=== PATIENT | female | born 1960 | race Caucasian/White ===

== ENCOUNTER 2024-09-28 12:38 | Emergency (ER) | payer OTHER ==
[~2024-09-28] VITALS: Ht 160 cm; Wt 73.5 kg
[2024-09-28 14:53] VITALS: BP 148/60; TEMP 98; O2SAT 100
== END 2024-09-28 14:54 | disposition home or self-care (01) ==
LOC: M ED 12:38
DX: S99.912A Unspecified injury of left ankle, initial encounter (principal); Y92.9 Unspecified place or not applicable; Y93.9 Activity, unspecified; Y99.9 Unspecified external cause status; E78.5 Hyperlipidemia, unspecified; E30.9 Disorder of puberty, unspecified; Z88.2 Allergy status to sulfonamides